=== PATIENT | female | born 1990 | race Caucasian/White ===

== ENCOUNTER 2020-01-18 06:29 | Inpatient (IN) | payer BC, SELFPAY ==
[2020-01-18] VITALS (100 sets, daily range): BP systolic 85–133; BP diastolic 38–106; PULSE 73–131; RESP 16; TEMP 36.6–37.3; O2SAT 95–100; BMI 30.6
--- NOTE | 2020-01-18 06:29 | LDADM ---
This patient, Keri Hickman, was admitted to Labor/Delivery/Recovery 106 on 01/18/20 at 06:29. Plans for labor, pain management and were discussed with patient. Patient/family oriented to hospital policies and general routines including ID bracelet, bed and alarms, visiting hours, pain management, procedures, bathroom and other care routines, personal items, smoking policy, room service/diet and guest tray routines, security routines, and visiting hours. Patient/Family are encouraged to report perceived risks to care and to ask questions if they do not understand what they are told or what they should do. See OBIX for further documentation.
[2020-01-18 07:01] LABS: Basophils Absolute Auto 0.1 K/mm3 (0.0-0.1); Basophils Percent Auto 0.8 % (0.2-1.2); Eosinophils Absolute Auto 0.2 K/mm3 (0-0.3); Eosinophils Percent Auto 1.3 % (0-4.4); Hematocrit 38.8 % (37.0-47.0); Hemoglobin 12.5 g/dL (12.0-15.0); Immature Granulocyte Absolute 0.52 K/mm3 (0.00-0.031); Immature Granulocyte Percent A 3.9 % (0-0.5); Lymphocytes Absolute Auto 3.07 K/mm3 (0.9-3.2); Lymphocytes Percent Auto 23.2 % (18.3-44.2); Mean Corpuscular HGB Conc 32.2 g/dl (32-36); Mean Corpuscular Hemoglobin 30.6 pg (26-34); Mean Corpuscular Volume 94.9 fl (80-100); Mean Platelet Volume 11.8 fl (7.4-10.4); Monocytes Absolute Auto 0.9 K/mm3 (0.1-0.6); Monocytes Percent Auto 6.4 % (2.6-8.5); Neutrophils Absolute Auto 8.5 K/mm3 (1.3-6.7); Neutrophils Percent Auto 64.4 % (45.5-73.1); Platelet Count Result 206 k/mm3 (150-375); Red Blood Count 4.09 M/mm3 (4.2-5.4); Red Cell Distribution Width 15.4 % (11.5-14.5); White Blood Count 13.2 K/mm3 (4.5-10.0)
[2020-01-18] MEDS: LACTATED RINGERS 1,000 ML 125 ML IV CONT ×4 (07:04→14:31)
[2020-01-18] MEDS: OXYTOCIN 30 UNITS/NS 500 ML 30 UNITS/500 ML BAG IV CONT (07:06)
[2020-01-18] MEDS: AMPICILLIN 2 GM/NS 100 ML 2 GM/100 ML BAG IVPB (07:10)
--- NOTE | 2020-01-18 08:47 | PM.IMHP ---
H&P: HPI History of Present Illness Chief complaint: induction of labor Narrative: Keri Hickman is a 29 yo @ 39.0wks who presents for elective induction of labor. She denies any issues. Her is only complicated by GBS +. Review of Systems Constitutional: Constitutional: Denies body ache(s), Denies chills and Denies fatigue Eyes: Eyes: Denies blurry vision Cardiovascular: Cardiovascular: Denies chest pain and Denies palpitations Respiratory: Respiratory: Denies cough and Denies dyspnea Gastrointestinal: Gastrointestinal: Denies abdominal pain, Denies nausea and Denies vomiting Genitourinary: Genitourinary: Denies dysuria and Denies vaginal discharge Neurologic: Denies headache(s) Psychiatric: Psychiatric: Denies no additional psychiatric complaints [facility] Family History Family History Other Unknown family medical history Social History Social History Years smoked: 7 Smoking status: Former smoker Substance use: never Spiritual care concerns: No Meds Home Medications and Allergies Home Medications Medication Instructions Recorded Confirmed Type PNV cmb#95-ferrous fumarate-FA 1 tablet PO DAILY 01/17/20 01/17/20 History [] Allergies Allergy/AdvReac Type Severity Reaction Status Date / Time Sulfa (Sulfonamide Allergy Hives Verified 01/17/20 14:30 Antibiotics) Vital Signs Vital Signs - 24 hr 01/18/20 07:05 01/18/20 07:15 01/18/20 07:30 Temperature Pulse Rate 91 84 81 Blood Pressure 112/58 L 109/60 104/69 01/18/20 07:45 01/18/20 08:00 01/18/20 08:01 Temperature Pulse Rate 92 93 97 Blood Pressure 111/63 125/106 H 120/52 L 01/18/20 08:10 01/18/20 08:30 Temperature 37.2 C Pulse Rate 98 Blood Pressure 117/78 Exam Const: General: comfortable and no acute distress Resp: Effort & Inspection: normal respiratory effort Cardio: Rate: regular rate : Other: FHTs: 130's/ mod manjinder/ + accels/ no decels - category 1 TOCO: ctx's q 2-3 min Membranes: intact Cervix: 2-3/ thick/ high Drips: pitocin @ 4mU Skin: General skin exam: normal color Neuro: Speech: normal speech Extrem: General: normal to inspection Psych: Affect: normal affect H&P: Results Labs Labs: Short CBC 01/18/20 Range/Units 06:50 WBC 13.2 H (4.5-10.0) K/mm3 Hgb 12.5 (12.0-15.0) g/dL Hct 38.8 (37.0-47.0) % Plt Count 206 (150-375) k/mm3 Assessment and Plan Assessment and plan (1) : Qualifiers: Weeks of gestation: 39 weeks Qualified Code(s): Z3A.39 - 39 weeks gestation of Code(s): Z34.90 - Encounter for supervision of normal , unspecified, unspecified trimester Status: Acute Assessment and Plan: - Admit to L&D for elective IOL @ 39wks - GBS ppx to be started - Will start pitocin augmentation per protocol - Plan for AROM after 4 hrs of abx - FHT reassuring; continuous monitoring - Anesthesia consult PRN pain
[2020-01-18] MEDS: AMPICILLIN 1 GM/NS 50 ML 1 GM/50 ML BAG IVPB ×2 (10:53→14:31)
--- NOTE | 2020-01-18 11:19 | WPDANESEPPF ---
Anes - Initial Pre Proc Eval Date/Time: 01/18/20 11:19 Surgeon: Kathryn Steinberg MD Pre Op Diagnosis: induction of labor Patient Data Age: 29 Gender: F Height: 5 ft 2 in Weight: 76 kg Last Vital Signs Temp 37.2 C 01/18/20 09:05 Pulse 101 H 01/18/20 11:18 BP 125/66 01/18/20 11:18 Pulse Ox 100 01/18/20 11:15 Allergies Allergy/AdvReac Type Severity Reaction Status Date / Time Sulfa (Sulfonamide Allergy Hives Verified 01/17/20 14:30 Antibiotics) Home Medications Medication Instructions Recorded Confirmed Type PNV cmb#95-ferrous fumarate-FA 1 tablet PO DAILY 01/17/20 01/17/20 History [] Laboratory Tests 01/18/20 01/18/20 01/18/20 06:50 06:50 06:50 WBC 13.2 K/mm3 H K/mm3 (4.5-10.0) RBC 4.09 M/mm3 L M/mm3 (4.2-5.4) Hgb 12.5 g/dL g/dL (12.0-15.0) Hct 38.8 % % (37.0-47.0) MCV 94.9 fl fl (80-100) MCH 30.6 pg pg (26-34) MCHC 32.2 g/dl g/dl (32-36) RDW 15.4 % H % (11.5-14.5) Plt Count 206 k/mm3 k/mm3 (150-375) MPV 11.8 fl H fl (7.4-10.4) Immature Gran % (Auto) 3.9 % H % (0-0.5) Neut % (Auto) 64.4 % % (45.5-73.1) Lymph % (Auto) 23.2 % % (18.3-44.2) [place] % (Auto) 6.4 % % (2.6-8.5) Eos % (Auto) 1.3 % % (0-4.4) Baso % (Auto) 0.8 % % (0.2-1.2) Lymph # (Auto) 3.07 K/mm3 K/mm3 (0.9-3.2) [place] # (Auto) 0.9 K/mm3 H K/mm3 (0.1-0.6) Eos # (Auto) 0.2 K/mm3 K/mm3 (0-0.3) Baso # (Auto) 0.1 K/mm3 K/mm3 (0.0-0.1) Abs Immat Gran (auto) 0.52 K/mm3 H K/mm3 (0.00-0.031) Absolute Neuts (auto) 8.5 K/mm3 H K/mm3 (1.3-6.7) Absolute Nucleated RBC 0.0 K/mm3 K/mm3 (0.0-0.012) Nucleated RBC % 0.0 % % (0.0-0.2) RPR Pending Blood Type B Positive Antibody Screen Negative Patient hx anesthesia problems: none Family hx anesthesia problems: none [facility] Family History Family History Other Unknown family medical history Social History Social History Years smoked: 7 Smoking status: Former smoker Substance use: never Spiritual care concerns: No Anes - Eval Final PreProcedure Day of Procedure 01/18/20 11:19 Patient weight: overweight Heart: regular rate and rhythm Lungs: clear to auscultation Neurological: alert and oriented ASA classification: II Emergent: no Anesthetic plan: proceed Anesthesia type and monitoring: regional epidural and standard monitoring Informed Consent: The patient's anesthetic plan and its attendant risks and benefits were discussed with the patient/family/POA. Questions were solicited and answers provided to the satisfaction of the patient/family/POA.
--- NOTE | 2020-01-18 15:39 | PM.OBPNLAB ---
Pain Control Date/time seen: 01/18/20 15:39 Keri is a 29yo @ 39.0 admitted for elective induction of labor; GBS +. S: No complaints; comfortable with epidural. O: BP 110/59, afebrile FHTs: 135's/ mod manjinder/ + accels/ no decels - cat 1 [place]: ctx's q2-3min Cervix: /-1 @ 1530 Membranes: AROM, clear 1215 on 01/18/20 Pitocin: 16mU A/P: Active Labor-- cervix now at 1530 Continue pitocin per protocol IUPC placed on this exam to better monitor contractions Continous monitoring; FHT reassuring GBS ppx w/ ampicillin Anticipate soon Kathryn Steinberg MD
--- NOTE | 2020-01-18 16:19 | PM.OBPRVD ---
OB - Delivery Note Procedure Delivery date: 01/18/20 Procedure: Patient progressed to complete dilation and with good maternal effort delivered the head over intact perineum. A nuchal cord was palpated but was noted to be loose and was delivered through. The shoulders and remaining body delivered without complications. The had spontaneous cry and was immediately placed skin to skin. The umbilical cord was then clamped and cut. A segment of the umbilical cord was collected for cord gases. The remaining cord blood was collected for typing. With Pitocin running and gentle traction on the cord, the placenta delivered without complications. The fundus was palpated firm and minimal bleeding was noted. The cervix, vagina, and perineum were examined and no lacerations were identified. Sponge, lap, instrument, and needle counts were correct at the end of the procedure. Mom and baby were left in the birthing suite bonding skin to skin in a stable condition. events: No Care (late transfer of care @ 27wks) and Labor Induction Intrapartal events: None Induction method: per pitocin protocol Delivery augmentation: rupture of membranes Delivery monitor: external FHT and internal uterine Route of delivery: Laceration description: None Specimen: No Estimated blood loss (mL): 150 Anesthesia type: Epidural Disposition: floor Baby Date of : 01/18/20 Time of : 16:07 Weeks of gestation at delivery: 39 gender: Female Weight (pounds): 7 Weight (ounces): 1 presentation: vertex Placenta delivery description: Expressed cord vessel description: 3 Vessels and Nuchal Cord (loose and delivered through) score one minute: 9 score five minutes: 9
[2020-01-18] MEDS: OXYTOCIN 30 UNITS/NS 500 ML 30 UNITS/500 ML BAG 125 UNITS IV CONT (16:47)
[2020-01-19] MEDS: IBUPROFEN 600 MG TABLET PO (04:52)
[2020-01-19 05:46] LABS: Hematocrit 35.4 % (37.0-47.0); Hemoglobin 11.5 g/dL (12.0-15.0)
[2020-01-19 07:19] LABS: Rapid Plasma Reagin Non-Reactive (NonReactive)
[2020-01-19] MEDS: MULTIVIT/MIN/PREN/FOL AC/IRON TABLET 1 TAB PO (07:37)
[2020-01-19 07:40] VITALS: BP 117/77; PULSE 87; RESP 18; TEMP 37.6; O2SAT 99
--- NOTE | 2020-01-19 08:50 | WPDANLDPN2 ---
Anes-Prog Note L&D Date/Time: 01/19/20 08:50 Comfortable throughout: labor and delivery Neuraxial method: epidural Epidural/Spinal procedure site: clean & non-tender Neuro status: Neuro function grossly intact. Cardiovascular status: normal Respiratory status: normal Airway patency: baseline Mental status: baseline Post-Op hydration status: normal Vital Signs: Last Vital Signs Temp 36.6 C 01/18/20 18:45 Pulse 96 01/18/20 18:45 Resp 16 01/18/20 18:45 BP 121/66 01/18/20 18:45 Pulse Ox 100 01/18/20 18:45 Pain score (VAS): 0/10. Patient resting in bed at time of assessment, appears comfortable. I/O: Intake & Output 01/18/20 01/19/20 01/19/20 23:59 07:59 15:59 Intake Total 1500 Output Total 225 Balance 1275 Post-procedural complaints: none Patient feedback: Patient satisfied with anesthetic care.
--- NOTE | 2020-01-19 12:04 | PM.OBPNVD ---
OB - PN: Subj Subjective Date/time seen: 01/19/20 12:04 Keri is a 29yo now P3014 s/p , PPD#1 She denies any issues today. Her pain is well controlled. She is ambulating w/o s/sx of anemia. Her bleeding is improving. She is tolerating regular diet w/o issue. She is passing flatus and voiding spontaneously. She is breast feeding. She would like to be discharged home today. OB - PN: Obj Data Labs CBC & Chem 7: 01/19/20 04:52 Labs: Laboratory Results - last 24 hr 01/18/20 01/19/20 06:50 04:52 Hgb 11.5 L Hct 35.4 L RPR Non-reactive OB - PN A/P Assessment and Plan (1) : Qualifiers: Weeks of gestation: 39 weeks Qualified Code(s): Z3A.39 - 39 weeks gestation of Code(s): Z34.90 - Encounter for supervision of normal , unspecified, unspecified trimester Status: Acute Plan day: 1 Plan: routine care and discharge home Comments: - follow up in clinic in 4 weeks - Pelvic rest, take medications as prescribed, and Pain/fever/bleeding/HTN ER return precautions discussed with patient . Time Spent With Patient Time: Total time spent is greater than 50% in coordination of care (as documented) at patient's floor/unit and/or counseling patient: Review of Systems Constitutional: Constitutional: Denies body ache(s) and Denies chills Cardiovascular: Cardiovascular: Denies rapid heart rate Respiratory: Respiratory: Denies cough and Denies dyspnea Gastrointestinal: Gastrointestinal: Denies abdominal pain, Denies nausea and Denies vomiting Genitourinary: Genitourinary: Denies dysuria Neurologic: Denies headache(s) Exam Const: General: comfortable, no acute distress, alert and awake Resp: Effort & Inspection: abnormal respiratory effort Auscultation: not clear to auscultation bilaterally Cardio: Rate: abnormal rate GI: Auscultation: bowels sounds not normal Other: soft, non-tender : Other: fundus firm at umbilicus Psych: Appearance: grossly normal Affect: normal affect Attitude: cooperative
--- NOTE | 2020-01-19 13:45 | PC.NURSE ---
Consult with pt., mother reports this is her first to attempt to breastfeed. Mother states is eager to feed, she is having pain with latch. Reviewed infant feeding cues, frequencies, duration of feedings, feeding elimination flow sheet, and signs of adequate intake. Demonstrated stimulation techniques to wake infant for feeding. Observed mother latching in cradle positioning allowing infant to self attach with shallow latch. Assisted with infant to breast. Reviewed positioning/alignment cross cradle, holding breast in U hold and asymmetrical latch on. Infant was able to latch correctly. nursed eagerly, with steady draws and frequent swallowing noted. Reviewed signs of a correct latch, effective nursing and suck swallow ratio. was able to maintain latch without discomfort to mother. Mother reports has not been latching as deeply or feeding as continuous, reporting no pain with this feeding. Nipple care reviewed. Instructed mother to call out for RN assistance if she is unable to latch infant for feeding or she has discomfort with nursing. Instructed feeding should be initiated three hours from start of last feeding or if feeding cues are noted before. Mother voiced understanding of information shared. Mother wishes to be discharged to day. Infant has had several effective feedings in the past 24 hours, and is currently meeting outcomes for weight, output, jaundice and feeding frequencies. Mother states she feels confident to continue effective at home. Reviewed transition to breast milk, signs of adequate intake, and engorgement/relief. Instructed to call ICP if intake/output less than required. Reviewed regular medications mother is taking. Information provided per [place]. Reviewed community resources on the [facility] website and in the Mom/Baby guide. Information on outpatient services provided. Mother has no further questions at this time.
[2020-01-19 21:00] VITALS: BP 124/79; PULSE 75; RESP 16; TEMP 36.8; O2SAT 99
[2020-01-20 08:05] VITALS: BP 116/67; PULSE 81; RESP 18; TEMP 36.8
[2020-01-20] MEDS: MULTIVIT/MIN/PREN/FOL AC/IRON TABLET 1 TAB PO (08:16)
[2020-01-20] MEDS: MEASLES,MUMPS,RUBELLA VACCINE 0.5 ML VIAL SUB-Q (08:17)
--- NOTE | 2020-02-07 08:11 | PM.DS ---
DS: Admitting Diagnosis Admitting Diagnosis Admitting Diagnosis: Encounter for supervision of normal , unspecified, third trimester DS: Discharge Diagnosis Discharge Diagnosis (1) : Qualifiers: Weeks of gestation: 39 weeks Qualified Code(s): Z3A.39 - 39 weeks gestation of Code(s): Z34.90 - Encounter for supervision of normal , unspecified, unspecified trimester Status: Acute DS: Summary Hospital Course Hospital Course: Keri was admitted for social IOL at 39+wks. Her labor course was uneventful and she delivered a female without complications. She had a normal course and was discharged home after meeting all milestones on PPD#2. Time Spent with Patient Time attestation: Total time spent providing and/or coordinating discharge services: Exam Const: General: no acute distress Limitations: no limitations Resp: Effort & Inspection: normal respiratory effort Auscultation: clear to auscultation bilaterally Cardio: Rate: regular rate GI: GI Palp: Yes Soft to palpation Auscultation: normal bowel sounds : Other: fundus firm below umbilicus Skin: General skin exam: normal color Neuro: General: gait normal Extrem: General: normal to inspection Psych: Mental Status: mental status grossly normal Discharge Plan Discharge Attending physician on discharge: Kathryn Steinberg Consulting providers: Sunday Bishop Discharging Clinician: Kathryn Steinberg Anticipated Discharge Date/Time: 01/19/20 18:00 Patient Disposition: Home, Self-Care Activity: pelvic rest Diet: regular Discharge Instructions: Education: Mom and Baby Guide Given to: Mother Follow-Up: Call your delivering provider's office for an appointment to be seen in: 4 Weeks Mom and baby should come to the [facility] for the follow-up appointment. Appointment Date/Time: January 22, 2020 at 8:00 am What to expect at your follow-up visit: Physical Assessment Call [phone] if you are unable to keep your appointment time. BREAST CARE: 1. Wear a snug supportive bra. 2. For engorgement discomfort: Breast Feeding: A. Apply warm moist washcloths B. Express milk as needed to relieve engorgement C. Wear loose clothing Bottle Feeding: A. May apply ice packs 3. For sore nipples: A. Identify correct latch-on B. Apply warm moist washcloths before and after nursing C. Air dry nipples after nursing D. May apply Lansinoh cream to nipples ABDOMINAL INCISION: (if applicable) 1. Allow incision to air dry 2. Do NOT use lotions for powders on your incision 3. When showering, allow soap and water to run over the incision, but do not wash incision EPISIOTOMY/PERINEAL CARE: 1. Until bleeding stops, use your jeremiah bottle after urinating 2. Change your pad frequently throughout the day 3. You may take sitz baths several times a day (fill your bathtub with warm water and soak for 20 minutes.) Do NOT bathe in the water 4. No tub baths until seen by your physician - You may shower ACTIVITY: 1. Rest as much as possible. 2. Do not exercise or lift anything heavier than your baby (such as laundry or other children.) 3. Avoid stairs or driving as much as possible. 4. Do not put anything into the vagina. No douching, tampons, or sexual activity until seen by physician. NOTIFY PHYSICIAN IF YOU HAVE ANY QUESTIONS OR IF ANY OF THE FOLLOWING SYMPTOMS OCCUR: 1. If your episiotomy or incision becomes red, swollen, or more painful than what you have experienced in the hospital. 2. If your vaginal bleeding becomes foul smelling. 3. If your vaginal bleeding becomes more heavy than a period or if your bleeding changes from pink to bright red. However, you may pass an occasional walnut-sized clot once or twice for the first week . 4. If you experience a sharp,
== END 2020-01-20 11:59 | disposition home or self-care (01) | DRG 560 ==
LOC: ANHLDR 06:33 → ANHOB2 18:55
PROVIDERS: Admitting Provider Obstetrics & Gynecology; Visit Provider Obstetrics & Gynecology
DX: O99.824 Streptococcus B carrier state complicating childbirth (principal); Z3A.39 39 weeks gestation of pregnancy; Z37.0 Single live birth; Z23 Encounter for immunization; O69.81X0 Labor and delivery complicated by cord around neck, without compression, not applicable or unspecified
CPT/HCPCS: 36415; 85014; 85018; 85025; 86592; 86850; 86900; 86901; 90710; A9270; J0290; J2590; J2795; J7120